=== PATIENT | female | born 1965 | race Caucasian/White ===

== ENCOUNTER 2020-10-20 07:33 | Outpatient (CLI) | payer OTHER ==
--- NOTE | 2020-10-20 09:24 | MRI ---
MRI OF THE LEFT HAND WITHOUT CONTRAST: INDICATION: A 55-year-old female with a history of tendinitis and surgery on the left thumb in 2018 with an inabi lity now to straighten it. The patient also reports swelling of the left thumb. TECHNIQUE: Multiplanar, multisequence MR images were obtained of the left hand without IV contrast. A surface m arker was placed over the region of interest along the radial margin of the thumb MCP joint. FINDINGS: Comparisons are made with radiographs performed in the orthopedic clinic on 09/18/2020. FINDINGS: There is mild osteoarthrosis involving the thumb MCP joint without evidence of collateral ligament or capsular joint injury. Subchondral bone plate of the proximal phalanx and distal thumb metacarpal h ead appears within normal limits. The visualized flexor and extensor tendons to the left thumb appea r intact. The IP joint of the left thumb appears slightly flexed but otherwise normal-appearing. Th ere is mild osteoarthritic change at the 1st CMC joint. The thenar musculature appears within normal limits. The adductor pollicis musculature appears within normal limits.. The intrinsic hand muscul ature appears within normal limits. The visualized FDP and FDS tendons appear within normal limits. The visualized aspects of the median nerve and ulnar neurovascular appears within normal limits. Th ere is mild tendinosis of the ECU tendon. There are scattered subchondral cyst-like abnormalities of the wrist carpus. Visualized aspects of the TFC appear intact. Small suspected volar ganglion is p artially visualized along the radiocarpal joint measuring approximately 7.6 mm. IMPRESSION: Mild osteoarthrosis of the left thumb, particularly at the metacarpophalangeal and 1st carpometacarpa l joints. The visualized extensor, abductor, adductor, and flexor tendons of the thumb appear intact . The visualized ligamentous structures of the metacarpophalangeal and interphalangeal joint of the thumb appear intact. The ligamentous structures of the 1st carpometacarpal joint appear intact. POS: [facility]
== END 2020-10-20 07:34 | disposition home or self-care (01) ==
LOC: TBSIIMAG 07:33
PROVIDERS: ATTEND Orthopaedic Surgery Hand Surgery
DX: M77.9 Enthesopathy, unspecified (principal); M19.042 Primary osteoarthritis, left hand

== ENCOUNTER 2021-01-07 14:09 | Outpatient (CLI) | payer OTHER ==
[2021-01-07 16:18] LABS: Bilirubin Neg (Negative); Blood, Urine 50 (Negative); Clarity Slightly Cloudy (Clear); Glucose, Urine (Dipstick) Normal (Negative); Ketone, Urine Negative (Negative); Leukocyte 500 (Negative); Nitrite Negative (Negative); Protein, Urine (Dipstick) Negative (Neg-Trace); Specific Gravity, Urine 1.025 (1.002-1.036); Urobilinogen Normal mg/dL (Less than 2)
[2021-01-07 16:43] LABS: Bacteria/HPF 2+ HPF (None Seen); Transitional Epithelial 0-3 HPF (None Seen)
[2021-01-07 16:44] LABS: Mucous/LPF Rare LPF (<2+); WBC/HPF Greater Than 50 HPF (0-3)
[2021-01-08 02:36] LABS: SARS-CoV-2 PCR by NAA Not Detected (NotDetected)
== END 2021-01-07 14:10 | disposition home or self-care (01) ==
LOC: LABBT 14:09
PROVIDERS: ATTEND Orthopaedic Surgery Hand Surgery
DX: Z01.812 Encounter for preprocedural laboratory examination (principal); Z20.822 Contact with and (suspected) exposure to COVID-19; G56.02 Carpal tunnel syndrome, left upper limb; G56.22 Lesion of ulnar nerve, left upper limb
CPT/HCPCS: 81001; 87635; U0003; U0005

== ENCOUNTER 2021-01-12 11:25 | Day surgery (SDC) | payer OTHER ==
[2021-01-08 14:42] VITALS: BMI 48.0
[2021-01-12 12:23] LABS: #Basophils 0.1 thou/uL (0.0-0.2); #Eosinphils 0.1 thou/uL (0.0-0.7); #Lymphocytes 2.8 thou/uL (1.20-3.40); #Monocytes 0.5 thou/uL (0.11-0.59); #Neutrophils 2.4 thou/uL (1.40-6.50); %Basophils 2.4 % (0.0-1.0); %Eosinophils 2.4 % (0.0-10.0); %Monocytes 8.2 % (0.0-10.0); Hemoglobin 13.1 g/dL (12.0-16.0); Mean Corpuscular HGB CONC 35.5 g/dL (32.0-36.0); Mean Corpuscular Hemoglobin 33.8 pg (27.0-31.0); Mean Corpuscular Volume 95.1 fL (78.0-98.0); Mean Platelet Volume 8.6 fL (7.4-10.4); Platelet Count 245 thou/uL (130-400); RBC Distribution Width 11.8 % (11.5-14.5); Red Blood Cell (RBC) Count 3.87 mill/uL (4.20-5.40)
[2021-01-12] MEDS ORDERED: Bupivacaine PF 0.5% 30 ML VIAL ONE ×2 (12:38→14:41)
[2021-01-12] MEDS ORDERED: Bacitracin Zinc Ointment 30 gm TUBE ONE (12:38)
[2021-01-12] MEDS ORDERED: Betamet Acet/Betamet Na Ph 30 MG/5 ML VIAL ONE (12:42)
[2021-01-12 13:11] LABS: Bacteria/HPF None Seen HPF (None Seen); Bilirubin Negative (Negative); Blood, Urine Negative (Negative); Clarity Clear (Clear); Glucose, Urine (Dipstick) Normal (Negative); Ketone, Urine Negative (Negative); Leukocyte Negative Leu/uL (Negative); Nitrite Negative (Negative); Protein, Urine (Dipstick) Negative (Neg-Trace); RBC/HPF 0-3 HPF (0-3); Specific Gravity, Urine 1.022 (1.002-1.036); Squamous Epithelial 0-3 HPF (0-3); Urobilinogen Normal mg/dL (Less than 2); WBC/HPF 0-3 HPF (0-3)
[2021-01-12 13:23] LABS: Urine Culture Reflex No No
[2021-01-12] MEDS ORDERED: Levofloxacin 500 mg/D5W 100 ml Premix Bag ONE (13:44)
[2021-01-12] MEDS ORDERED: Clindamycin/D5W 900 mg/50 ml Premix Bag ONE (13:44)
[2021-01-12] MEDS ORDERED: Ketorolac Tromethamine 30 MG/ML VIAL ONE (14:08)
[2021-01-12] MEDS ORDERED: Dexamethasone 20 MG/5 ML VIAL ONE (14:08)
[2021-01-12] MEDS ORDERED: PROPOFOL 200 MG/20 ML VIAL ONE (14:08)
[2021-01-12] MEDS ORDERED: Lidocaine 1% PF 5 ML VIAL ONE (14:08)
[2021-01-12] MEDS ORDERED: Ondansetron PF 4 MG/2 ML Vial ONE (14:08)
[2021-01-12] MEDS ORDERED: Fentanyl 100 MCG/2 ML VIAL ONE ×2 (14:20→15:36)
[2021-01-12] MEDS ORDERED: Morphine 10 MG/ML VIAL ONE (16:37)
[2021-01-12] MEDS ORDERED: Albuterol Sulfate 1.25 MG/3 ML NEB ONE (17:05)
== END 2021-01-12 18:00 | disposition home or self-care (01) ==
LOC: SDC 11:25
PROVIDERS: ATTEND Orthopaedic Surgery Hand Surgery
PROC: 01N50ZZ Release Median Nerve, Open Approach (ICD-10-PCS; principal; 2021-01-12)
PROC: 0MB40ZZ Excision of Left Elbow Bursa and Ligament, Open Approach (ICD-10-PCS; principal; 2021-01-12)
DX: M70.22 Olecranon bursitis, left elbow (principal); G56.02 Carpal tunnel syndrome, left upper limb; G56.22 Lesion of ulnar nerve, left upper limb; I10 Essential (primary) hypertension; K52.9 Noninfective gastroenteritis and colitis, unspecified; J43.9 Emphysema, unspecified; Z79.899 Other long term (current) drug therapy; Z88.0 Allergy status to penicillin; Z88.8 Allergy status to other drugs, medicaments and biological substances
CPT/HCPCS: 81001; 85025; 88304; J0702; J1100; J1885; J1956; J2270; J2405; J2704; J3010; J3490; J7620; S0020

== ENCOUNTER 2021-03-12 12:14 | Outpatient (CLI) | payer OTHER | END 2021-03-12 12:15 | disposition home or self-care (01) | LOC: BICRAD 12:14 | PROVIDERS: ATTEND Family Medicine | DX: J44.1 Chronic obstructive pulmonary disease with (acute) exacerbation (principal) | CPT/HCPCS: 71046 ==

== ENCOUNTER 2021-03-31 07:31 | Outpatient (CLI) | payer OTHER ==
[2021-03-31] MEDS ORDERED: Regadenoson 0.4 MG/5 ML SYRINGE ONE (08:26)
== END 2021-03-31 07:32 | disposition home or self-care (01) ==
LOC: NM 07:31
PROVIDERS: ATTEND Family Medicine
DX: R07.89 Other chest pain (principal)
CPT/HCPCS: 78452; 93017; A9500; J2785

== ENCOUNTER 2021-11-30 08:21 | Outpatient (CLI) | payer OTHER ==
[2021-11-30 11:37] VITALS: BMI 42.9
[2021-12-01] MEDS ORDERED: FLU VACC QS2021-22(6MOS UP)/PF 60 MCG/0.5 ML SYRINGE IM ONE (11:45)
== END 2021-11-30 08:22 | disposition home or self-care (01) ==
LOC: CT 08:21
PROVIDERS: ATTEND Student in an Organized Health Care Education/Training Program
DX: M47.22 Other spondylosis with radiculopathy, cervical region (principal); Z98.1 Arthrodesis status
CPT/HCPCS: 62302; 72126; 90471; 90686; G0008

== ENCOUNTER 2022-03-03 09:49 | Outpatient (CLI) | payer OTHER ==
[2022-03-03 10:58] LABS: Hemoglobin 15.2 g/dL (12.0-15.5); Mean Corpuscular HGB CONC 34.4 g/dL (32.0-36.0); Mean Corpuscular Hemoglobin 31.9 pg (27.0-33.0); Mean Corpuscular Volume 92.7 fl (81.6-98.3); Mean Platelet Volume 9.6 fl (7.4-10.4); Platelet Count 243 10x3/uL (150-450); RBC Distribution Width 12.4 % (11.5-14.5); Red Blood Cell (RBC) Count 4.77 10x6/uL (3.90-5.03); White Blood Cell (WBC) Count 7.5 10x3/uL (3.5-10.5)
[2022-03-03 11:26] LABS: Anion Gap 15 mmol/L (10-20); BUN (Urea Nitrogen) 14 mg/dL (9.8-20.1); Calc. Creatinine Clearance 0 mL/min (70-130); Calcium 9.5 mg/dL (7.8-10.44); Carbon Dioxide 24 mmol/L (22-29); Chloride 103 mmol/L (98-107); Glucose 188 mg/dL (70-105); Potassium 4.2 mmol/L (3.5-5.1); Sodium 138 mmol/L (136-145)
[2022-03-04 00:07] LABS: SARS-CoV-2 PCR by NAA Not Detected (NotDetected)
== END 2022-03-03 09:50 | disposition home or self-care (01) ==
LOC: LABBT 09:49
PROVIDERS: ATTEND Neurological Surgery
DX: Z01.818 Encounter for other preprocedural examination (principal); M54.12 Radiculopathy, cervical region; Z20.822 Contact with and (suspected) exposure to COVID-19
CPT/HCPCS: 80048; 85027; 93005; 93010; U0003; U0005

== ENCOUNTER 2022-03-03 10:00 | Inpatient (IN) | payer OTHER ==
[2022-03-08] MEDS ORDERED: ceFAZolin (BATCH) 2 GM/100 ML BAG ONE ×2 (09:08→09:09)
[2022-03-08] MEDS ORDERED: Lidocaine 1% MPF 2 ML VIAL ONE (09:09)
[2022-03-08] MEDS ORDERED: Albuterol Sulfate 2.5 mg/3 ml Neb ONE (09:58)
[2022-03-08] MEDS ORDERED: Clindamycin/D5W 900 mg/50 ml Premix Bag ONE (10:02)
[2022-03-08] MEDS ORDERED: Levofloxacin 500 mg/D5W 100 ml Premix Bag ONE (10:02)
[2022-03-08] MEDS ORDERED: Ketorolac Tromethamine 30 MG/ML VIAL ONE (10:37)
[2022-03-08] MEDS ORDERED: PHENYLEPHRINE-NS 100 MCG/ML 10 ML SYRINGE ONE (10:37)
[2022-03-08] MEDS ORDERED: PROPOFOL 200 MG/20 ML VIAL ONE (10:37)
[2022-03-08] MEDS ORDERED: ePHEDrine 50 MG/ML VIAL ONE (10:37)
[2022-03-08] MEDS ORDERED: Ondansetron PF 4 MG/2 ML Vial ONE ×2 (10:37→13:19)
[2022-03-08] MEDS ORDERED: Lidocaine 1% PF 5 ML VIAL ONE (10:37)
[2022-03-08] MEDS ORDERED: Rocuronium Bromide 10 MG/ML (10ML VIAL) ONE (10:37)
[2022-03-08] MEDS ORDERED: fentaNYL Citrate/PF 100 MCG/2 ML SYRINGE ONE ×3 (10:43→11:45)
[2022-03-08] MEDS ORDERED: SUGAMMADEX SODIUM 200 MG/2 ML VIAL ONE (11:29)
[2022-03-08] MEDS ORDERED: Fentanyl 100 MCG/2 ML VIAL ONE (11:56)
[2022-03-08] MEDS ORDERED: Meperidine HCl/PF 25 MG/ML VIAL SLOW IVP PRN (11:58)
[2022-03-08] MEDS ORDERED: Promethazine HCl 25 MG/ML VIAL IM PRN ×2 (11:58→12:15)
[2022-03-08] MEDS ORDERED: HYDROmorphone 2 MG/ML VIAL SLOW IVP PRN (11:58)
[2022-03-08] MEDS ORDERED: Promethazine HCl 25 MG/ML VIAL IVPB PRN (11:58)
[2022-03-08] MEDS ORDERED: Ondansetron HCl/PF 4 MG/2 ML Vial IVP PRN (11:58)
[2022-03-08] MEDS ORDERED: HYDROmorphone 0.5 MG/0.5 ML SYRINGE ONE ×3 (12:11→12:45)
[2022-03-08] MEDS ORDERED: Promethazine 25 MG TAB PO PRN (12:15)
[2022-03-08] MEDS ORDERED: traMADol HCl 50 MG TAB PO PRN ×2 (12:15)
[2022-03-08] MEDS ORDERED: Promethazine HCl 12.5 MG SUPP PR PRN (12:15)
[2022-03-08] MEDS ORDERED: Sodium Chloride 0.9% 1,000 ML IV SCH (12:15)
[2022-03-08] MEDS ORDERED: Milk Of Magnesia 30 ML UDCUP PO PRN (12:15)
[2022-03-08] MEDS ORDERED: diphenhydrAMINE 25 MG CAP PO PRN ×2 (12:15→14:47)
[2022-03-08] MEDS ORDERED: Mag-Al 1200 mg/1200 mg/30 ML UDCUP PO PRN (12:15)
[2022-03-08] MEDS ORDERED: Ondansetron PF 4 MG/2 ML Vial IVP PRN (12:15)
[2022-03-08] MEDS ORDERED: Cyclobenzaprine 10 MG TAB PO PRN (12:15)
[2022-03-08] MEDS ORDERED: Acetaminophen/Codeine 30-300mg Tablet PO PRN (12:15)
[2022-03-08] MEDS ORDERED: Morphine 2 MG/ML VIAL SLOW IVP PRN (12:15)
[2022-03-08] MEDS ORDERED: diphenhydrAMINE 50 MG/ML VIAL IVP PRN ×2 (12:15→14:47)
[2022-03-08] MEDS ORDERED: Albuterol 200 PUFF (6.7GM INHALER) INH PRN (12:23)
[2022-03-08] MEDS ORDERED: Promethazine HCl 25 MG/ML VIAL ONE (12:56)
[2022-03-08] MEDS: Clindamycin/D5W 900 MG in Premix Bag 1 BAG IVPB SCH ×2 (15:59→22:13)
[2022-03-08] MEDS: metFORMIN 500 MG TAB PO SCH (16:26)
[2022-03-08] MEDS: Morphine 4 MG/ML VIAL SLOW IVP PRN (18:35)
[2022-03-08] MEDS: Mometasone 100 MCG/Formoterol 5 MCG 120 PUFF INHALER INH SCH (18:57)
[2022-03-08] MEDS ORDERED: ALPRAZolam 1 MG TAB PO SCH (21:00)
[2022-03-08] MEDS ORDERED: Amitriptyline HCl 25 MG TAB PO SCH (21:00)
[2022-03-08] MEDS ORDERED: Benztropine 1 MG TAB PO SCH (21:00)
[2022-03-08] MEDS ORDERED: OLANZapine 5 MG TAB PO SCH (21:00)
[2022-03-08] MEDS: Meclizine HCl 25 MG TAB PO SCH (22:05)
[2022-03-08] MEDS: ALPRAZolam 0.5 MG TAB PO SCH (22:08)
[2022-03-08] MEDS ORDERED: MUCINEX INSTASOOTHE SPRY (115 ML BOT) PO PRN (22:23)
[2022-03-08] MEDS ORDERED: Chloraseptic Spray 180 ml Bottle PO PRN (22:27)
[2022-03-09] MEDS: Cepastat Lozenges 1 LOZ PO PRN ×2 (00:24→08:33)
[2022-03-09] MEDS: Morphine 4 MG/ML VIAL SLOW IVP PRN ×2 (02:50→08:24)
[2022-03-09] MEDS: Acetaminophen/Codeine 30-300mg Tablet PO PRN ×2 (04:14→11:19)
[2022-03-09] MEDS: Clindamycin/D5W 900 MG in Premix Bag 1 BAG IVPB SCH (05:54)
[2022-03-09] MEDS: Mometasone 100 MCG/Formoterol 5 MCG 120 PUFF INHALER INH SCH (07:35)
[2022-03-09] MEDS: ALPRAZolam 0.5 MG TAB PO SCH (08:32)
[2022-03-09] MEDS: Meclizine HCl 25 MG TAB PO SCH (08:33)
[2022-03-09] MEDS ORDERED: OLANZapine 5 MG TAB PO SCH (09:00)
[2022-03-09] MEDS ORDERED: Amlodipine 5 MG TAB PO SCH (09:00)
[2022-03-09] MEDS ORDERED: VICTOZA 0.6 MG SC SCH (09:00)
[2022-03-09 09:24] VITALS: BP 107/74; TEMP 99.3
[2022-03-09] MEDS: metFORMIN 500 MG TAB PO SCH (09:42)
== END 2022-03-09 11:58 | disposition home or self-care (01) | DRG 473 ==
LOC: SURG A 03-08 08:02 → MSONC 03-08 13:54
PROVIDERS: ADMIT Neurological Surgery; ATTEND Neurological Surgery
PROC: 0RG10A0 Fusion of Cervical Vertebral Joint with Interbody Fusion Device, Anterior Approach, Anterior Column, Open Approach (ICD-10-PCS; principal; 2022-03-08)
PROC: 0RB30ZZ Excision of Cervical Vertebral Disc, Open Approach (ICD-10-PCS; 2022-03-08)
PROC: 0RP104Z Removal of Internal Fixation Device from Cervical Vertebral Joint, Open Approach (ICD-10-PCS; 2022-03-08)
DX: M48.02 Spinal stenosis, cervical region (principal); Z20.822 Contact with and (suspected) exposure to COVID-19; M54.12 Radiculopathy, cervical region; F41.9 Anxiety disorder, unspecified; F31.9 Bipolar disorder, unspecified; E11.9 Type 2 diabetes mellitus without complications; I10 Essential (primary) hypertension; J44.9 Chronic obstructive pulmonary disease, unspecified; Z88.0 Allergy status to penicillin; Z88.8 Allergy status to other drugs, medicaments and biological substances; Z79.899 Other long term (current) drug therapy; Z79.84 Long term (current) use of oral hypoglycemic drugs; Z79.51 Long term (current) use of inhaled steroids
CPT/HCPCS: 36416; 76000; 94664; C1713; C1776; J0690; J1170; J1885; J1956; J2270; J2405; J2550; J2704; J3010; J3490; J7611; J7620; Q0169

== ENCOUNTER 2022-03-23 09:38 | Outpatient (CLI) | payer OTHER | END 2022-03-23 09:39 | disposition home or self-care (01) | LOC: TBSIIMAG 09:38 | PROVIDERS: ATTEND Neurological Surgery | DX: M47.22 Other spondylosis with radiculopathy, cervical region (principal); Z98.1 Arthrodesis status | CPT/HCPCS: 72040 ==

== ENCOUNTER 2022-08-22 11:12 | Emergency (ER) | payer OTHER | END 2022-08-22 11:45 | disposition home or self-care (01) | LOC: ERS 11:12 | DX: H00.011 Hordeolum externum right upper eyelid (principal); E78.00 Pure hypercholesterolemia, unspecified; J44.9 Chronic obstructive pulmonary disease, unspecified; I10 Essential (primary) hypertension; E11.9 Type 2 diabetes mellitus without complications; Z79.84 Long term (current) use of oral hypoglycemic drugs; F17.210 Nicotine dependence, cigarettes, uncomplicated | CPT/HCPCS: 99283 ==

== ENCOUNTER 2022-09-02 09:37 | Outpatient (CLI) | payer OTHER | END 2022-09-02 09:38 | disposition home or self-care (01) | LOC: RAD 09:37 | PROVIDERS: ATTEND Internal Medicine Critical Care Medicine | DX: R06.00 Dyspnea, unspecified (principal) | CPT/HCPCS: 71046 ==

== ENCOUNTER 2022-10-29 09:08 | Emergency (ER) | payer OTHER | END 2022-10-29 09:43 | disposition left against medical advice (07) | LOC: ERS 09:08 | DX: Z53.21 Procedure and treatment not carried out due to patient leaving prior to being seen by health care provider (principal) ==

== ENCOUNTER 2023-01-27 10:34 | Emergency (ER) | payer OTHER ==
[2023-01-27] MEDS ORDERED: Ondansetron PF 4 MG/2 ML Vial ONE (11:00)
[2023-01-27 11:19] LABS: Actual Bicarbonate (HCO3v) 23 mEq/L (22-28); Base Excess -0.1 mEq/L (-2.0 to +3.0); Calcium, Ionized (venous) 1.19 mmol/L (1.16-1.32); Chloride (VBG) 98 mmol/L (98-106); Potassium (VBG) 4.16 mmol/L (3.70-5.30); Sodium 132.9 mmol/L (133-146); pH (venous) 7.47 (7.32-7.43)
[2023-01-27 11:26] LABS: #Basophils 0.1 thou/uL (0.0-0.2); #Eosinphils 0.2 thou/uL (0.0-0.7); #Lymphocytes 3.3 thou/uL (1.20-3.40); #Monocytes 0.7 thou/uL (0.11-0.59); #Neutrophils 4.6 thou/uL (1.40-6.50); %Basophils 1.2 % (0.0-1.0); %Lymphocytes 37.6 % (21.0-51.0); %Monocytes 7.4 % (0.0-10.0); %Neutrophils 51.7 % (42.0-75.0); Hemoglobin 15.1 g/dL (12.0-16.0); Mean Corpuscular HGB CONC 33.9 g/dL (32.0-36.0); Mean Corpuscular Hemoglobin 31.9 pg (27.0-31.0); Mean Platelet Volume 8.1 fL (7.4-10.4); Platelet Count 261 10x3/uL (130-400); RBC Distribution Width 11.5 % (11.5-14.5); Red Blood Cell (RBC) Count 4.74 mill/uL (4.20-5.40); White Blood Cell (WBC) Count 8.8 10x3/uL (4.8-10.8)
[2023-01-27 11:31] LABS: Bilirubin Negative (Negative); Blood, Urine Trace (Negative); Clarity Clear (Clear); Glucose, Urine (Dipstick) Greater than 1000 mg/dL (Negative); Ketone, Urine Negative (Negative); Leukocyte 250 Leu/uL (Negative); Nitrite Negative (Negative); Protein, Urine (Dipstick) Negative (Neg-Trace); Specific Gravity, Urine 1.038 (1.002-1.036); Urobilinogen Normal mg/dL (Less than 2); pH, Urine 5.5 (5.0-9.0)
[2023-01-27 11:32] LABS: Bacteria/HPF Rare-Few HPF (None Seen)
[2023-01-27 11:52] LABS: ALT (SGPT) 15 U/L (8-55); AST (SGOT) 14 U/L (5-34); Albumin 4.2 g/dL (3.5-5.0); Alkaline Phosphatase 89 U/L (40-110); Anion Gap 16 mmol/L (10-20); BUN (Urea Nitrogen) 9 mg/dL (9.8-20.1); Bilirubin, Total 0.4 mg/dL (0.2-1.2); CK (CPK) 42 U/L (29-168); Calc. Creatinine Clearance 0 mL/min (70-130); Calcium 9.1 mg/dL (7.8-10.44); Carbon Dioxide 21 mmol/L (22-29); Chloride 99 mmol/L (98-107); Estimated GFR 73; Globulin 3.3 g/dL (2.4-3.5); Lipase 54 U/L (8-78); Protein, Total 7.5 g/dL (6.0-8.3); Sodium 132 mmol/L (136-145)
[2023-01-27 12:02] LABS: Glucose 472 mg/dL (70-105)
[2023-01-27] MEDS ORDERED: Insulin Regular 300 UNITS/3 ML VIAL ONE (12:02)
== END 2023-01-27 13:30 | disposition home or self-care (01) ==
LOC: ERS 10:34
DX: E11.65 Type 2 diabetes mellitus with hyperglycemia (principal); J44.9 Chronic obstructive pulmonary disease, unspecified
CPT/HCPCS: 36415; 36416; 71045; 80053; 81003; 81015; 82010; 82550; 82805; 83690; 83880; 83930; 84484; 85025; 87040; 87086; 93005; 96361; 96374; 96375; J1815; J2405